=== PATIENT | female | born 1955 | race Two or more races ===

== ENCOUNTER 2016-05-11 10:57 | Emergency (ER) | payer OTHER ==
[2016-05-11 12:19] LABS: BASO # 0.1 x10^3/uL (0.0-0.2); BASO % 1 % (0-3); EOS % 3 % (0-3); HEMATOCRIT 45.8 % (36.0-47.0); LYMPH # 2.2 x10^3/uL (1.0-4.8); LYMPH % 23 % (24-48); MEAN CORPUSCULAR HEMOGLOBIN 31 pg (25-35); MEAN CORPUSCULAR HGB CONC 33 g/dL (31-37); MEAN CORPUSCULAR VOLUME 93 fL (79-100); MONO % 6 % (0-9); NEUT % 69 % (31-73); PLATELET COUNT 181 x10^3/uL (140-400); RED BLOOD COUNT 4.91 x10^6/uL (3.50-5.40); RED CELL DISTRIBUTION WIDTH 13.2 % (11.5-14.5)
--- NOTE | 2016-05-11 12:40 | RAD ---
Portable AP upright view CXR: Clinical indications: Chest pain today. Comparison: None available. Findings: Mild linear atelectasis of the left lateral lung base is seen. No lung consolidation or pleural effusion or pulmonary edema or lung mass or pneumothorax is seen. The heart size, pulmonary vasculature, mediastinum and both yasmin are unremarkable. Impression: Left lung base linear atelectasis..
[2016-05-11] MEDS ORDERED: IV NORMAL SALINE 1000ML BAG 1,000 ML IV ONE (12:45)
[2016-05-11] MEDS ORDERED: KETOROLAC TROMETHAMINE 30 MG/ML SYRINGE. IV ONE (12:45)
[2016-05-11] MEDS ORDERED: ONDANSETRON PF 4 MG/2 ML VIAL. IV ONE (12:45)
--- NOTE | 2016-05-11 13:00 | EKG ---
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
--- NOTE | 2016-05-11 13:28 | PHYS DOC ---
Past Medical History Past Medical History: Cancer, Other Additional Past Medical Histor: KIDNEY CANCER Past Surgical History: Cancer Surgery Alcohol Use: None Drug Use: None Adult General Chief Complaint Chief Complaint: CHEST PAIN HPI HPI This is a 60-year-old female prior CVA history but no other known medical problems who is coming in with IV days worth of back pain that does radiate into her chest and shoulders as well as significant cough and nausea and vomiting as well. Patient states she's had these symptoms several times after having a nephrectomy approximately 4 months ago. She's been evaluated in the ER multiple times for these symptoms and has had cardiac workup that has been negative. Per currently the patient is in no acute distress. History is obtained primarily by at bedside. Review of Systems Review of Systems Constitutional: Denies fever or chills [] Eyes: Denies change in visual acuity, redness, or eye pain [] HENT: Denies nasal congestion or sore throat [] Respiratory: Has cough, denies shortness of breath [] Cardiovascular: No additional information not addressed in HPI [] GI: Denies abdominal pain, has nausea, has vomiting, denies bloody stools or diarrhea [] : Denies dysuria or hematuria [] Musculoskeletal: Denies back pain or joint pain [] Integument: Denies rash or skin lesions [] Neurologic: Denies headache, focal weakness or sensory changes [] Endocrine: Denies polyuria or polydipsia [] Current Medications Current Medications Current Medications Medications (Trade) Dose Ordered Sig/Warren Start Time Stop Time Status Last Admin Dose Admin Ketorolac Tromethamine 30 mg 30 mg 1X ONCE 05/11/16 12:45 05/11/16 12:46 DC 05/11/16 12:49 30 MG Ondansetron HCl (Zofran) 4 mg 1X ONCE 05/11/16 12:45 05/11/16 12:46 DC 05/11/16 12:50 4 MG Sodium Chloride (Iv Sodium Chloride 0.9% 1000ml Bag) 1,000 ml @ 1,000 mls/hr 1X ONCE 05/11/16 12:45 05/11/16 13:44 DC 05/11/16 12:49 1,000 MLS/HR Allergies Allergies Allergies Coded Allergies Type Severity Reaction Last Updated Verified levothyroxine sodium Allergy Unknown 05/11/16 Yes Physical Exam Physical Exam Constitutional: Well developed, well nourished, no acute distress, non-toxic appearance. [] HENT: Normocephalic, atraumatic, bilateral external ears normal, oropharynx moist, no oral exudates, nose normal. [] Eyes: PERRLA, EOMI, conjunctiva normal, no discharge. [] Neck: Normal range of motion, no tenderness, supple, no stridor. [] Cardiovascular:Heart rate regular rhythm, no murmur [] Lungs & Thorax: Bilateral breath sounds clear to auscultation [] Abdomen: Bowel sounds normal, soft, no tenderness, no masses, no pulsatile masses. [] Skin: Warm, dry, no erythema, no rash. [] Back: No tenderness, no CVA tenderness. [] Extremities: No tenderness, no cyanosis, no clubbing, ROM intact, no edema. [] Neurologic: Alert and oriented X 3, normal motor function, normal sensory function, no focal deficits noted. [] Psychologic: Affect normal, judgement normal, mood normal. [] Current Patient Data Vital Signs Vital Signs Date Time Temp Pulse Resp B/P Pulse Ox O2 Delivery O2 Flow Rate FiO2 05/11/16 14:10 72 143/65 Room Air 05/11/16 11:09 98.1 14 97 98.1 Lab Values Laboratory Tests Test 05/11/16 12:10 05/11/16 13:10 White Blood Count 10.0x10^3/uL (4.0-11.0) Red Blood Count 4.91x10^6/uL (3.50-5.40) Hemoglobin 15.0g/dL (12.0-15.5) Hematocrit 45.8% (36.0-47.0) Mean Corpuscular Volume 93fL (79-100) Mean Corpuscular Hemoglobin 31pg (25-35) Mean Corpuscular Hemoglobin Concent 33g/dL (31-37) Red Cell Distribution Width 13.2% (11.5-14.5) Platelet Count 181x10^3/uL (140-400) Neutrophils (%) (Auto) 69% (31-73) Lymphocytes (%) (Auto) 23% (24-48) L Monocytes (%) (Auto) 6% (0-9) Eosinophils (%) (Auto) 3% (0-3) Basophils (%) (Auto) 1% (0-3) Neutrophils # (Auto) 6.8x10^3uL (1.8-7.7) Lymphocytes # (Auto) 2.2x10^3/uL (1.0-4.8) Monocytes # (Auto) 0.6x10^3/uL (0.0-1.1) Eosinophils # (Auto) 0.3x10^3/uL (0.0-0.7) Basophils # (Auto) 0.1x10^3/uL (0.0-0.2) Sodium Level 141mmol/L (136-145) Potassium Level 4.1mmol/L (3.5-5.1) Chloride Level 105mmol/L (98-107) Carbon Dioxide Level 26mmol/L (21-32) Anion Gap 10 (6-14) Blood Urea Nitrogen 21mg/dL (7-20) H Creatinine 0.7mg/dL (0.6-1.0) Estimated GFR (Cockcroft-Gault) 85.4 Glucose Level 126mg/dL (70-99) H Calcium Level 9.2mg/dL (8.5-10.1) Troponin I Quantitative < 0.017ng/mL (0.000-0.055) Laboratory Tests 05/11/16 12:10 Laboratory Tests 05/11/16 13:10 EKG EKG EKG as interpreted by me shows a sinus rhythm with a rate of 70 bpm. There are no acute signs of ischemia on this EKG. Intervals are normal. There is no ectopy. Radiology/Procedures Radiology/Procedures One view of the chest demonstrated some left lower lobe atelectasis as interpreted by the radiologist. Course & Med Decision Making Course & Med Decision Making Pertinent Labs and Imaging studies reviewed. (See chart for details) This 60 old female with ongoing cough with nausea and vomiting the last several days has a chest film that is suspicious for pneumonia with a left lower lobe atelectasis or infiltrate. I will be discharging the patient with a course of Tessalon Perles, doxycycline for suspected pneumonia, and Zofran for her nausea vomiting. I do not believe her chest pain is cardiac in etiology. Patient has had multiple cardiac workups in the past for similar type symptoms. Her symptoms have been present for the last 5 days and are likely more related to her ongoing nausea vomiting and cough. I gave her strict instruction to receive follow-up next 48 hours and allowed antibiotics to improve her symptoms. She was discharged without incident with strict instruction return if her chest pain should worsen for any reason. Her laboratory workup including a set of cardiac enzymes is otherwise unremarkable. Dragon Disclaimer Dragon Disclaimer This electronic medical record was generated, in whole or in part, using a voice recognition dictation system. Departure Departure Impression: Primary Impression: Cough Additional Impressions: Vomiting Chest pain Disposition: HOME, SELF-CARE Admitting Physician: Other Condition: STABLE Referrals: BOB RIDER MD (PCP) Patient Instructions: Cough, Adult, [id number] Additional Instructions: Please follow up with your primary doctor in the next 2-3 days and take your medication as prescribed. Return to the ER if you develop any worsening of your symptoms. Scripts Benzonatate (Tessalon Perle)100 Mg [id number] Mg PO TID PRN COUGH #15 CAP Prov:MARCELLA KNIGHT DO 05/11/16 Ondansetron Hcl (Zofran)4 Mg Tablet4 Mg PO BID PRN NAUSEA/VOMITING #10 TAB Prov:MARCELLA KNIGHT DO 05/11/16 Doxycycline Hyclate 100 Mg Tablet.dr100 Mg PO BID #20 TAB Prov:MARCELLA KNIGHT DO 05/11/16 Problem Qualifiers MARCELLA KNIGHT DO May 11, 2016 13:28
[2016-05-11 13:29] LABS: CALCIUM 9.2 mg/dL (8.5-10.1); CREATININE 0.7 mg/dL (0.6-1.0); GFR 85.4; POTASSIUM 4.1 mmol/L (3.5-5.1)
[2016-05-11 14:10] VITALS: BP 143/65
[2016-05-11] MEDS ORDERED: BENZ100C PO (14:42)
[2016-05-11] MEDS ORDERED: DOXY100T9 PO (14:42)
[2016-05-11] MEDS ORDERED: ONDA4TAB7 PO (14:42)
== END 2016-05-11 15:01 | disposition home or self-care (01) ==
LOC: ER 10:57
DX: R05 Cough (principal); R11.2 Nausea with vomiting, unspecified; R07.89 Other chest pain; Z88.8 Allergy status to other drugs, medicaments and biological substances; Z90.5 Acquired absence of kidney
CPT/HCPCS: 36415; 71010; 80048; 84484; 85027; 93005; 96361; 96374; 96375; 99285; J1885; J2405; J7030

== ENCOUNTER 2016-05-22 07:41 | Inpatient (IN) | payer SELFPAY ==
[~2016-05-22] VITALS: Ht 160 cm; Wt 57.6 kg
[~2016-05-22 07:41] MED LIST: BENZ100C PO; DOXY100T9 PO; ONDA4TAB7 PO
[2016-05-22] MEDS ORDERED: IV NORMAL SALINE 1000ML BAG 1,000 ML IV SCH (08:52)
[2016-05-22] MEDS ORDERED: ONDANSETRON PF 4 MG/2 ML VIAL. IV ONE (09:00)
[2016-05-22] MEDS ORDERED: MECLIZINE HCL 12.5 MG TABLET. PO ONE (09:00)
--- NOTE | 2016-05-22 09:18 | RAD ---
Portable chest, 05/22/2016: History: Cough Comparison is made to a study from 05/11/2016. The heart size and pulmonary vascularity are normal. The lungs are clear. There is no evidence of pleural fluid. Mild spurring is present in the spine. IMPRESSION: No acute cardiopulmonary abnormality is detected.
--- NOTE | 2016-05-22 09:19 | PHYS DOC ---
Past Medical History Past Medical History: Cancer, Other Additional Past Medical Histor: KIDNEY CANCER Past Surgical History: Cancer Surgery, Other Additional Past Surgical Histo: right ?partial nephrectomy, "surgery to keep from having babies" Alcohol Use: None Drug Use: None Adult General Chief Complaint Chief Complaint: MULTIPLE COMPLAINTS HPI HPI Patient is a 60 year old female who presents with family for evaluation of intermittent nausea and vomiting of nonbloody nonbilious emesis, nonproductive cough, intermittent dizziness, intermittent headaches, and generalized weakness. States she has been having vomiting over the past 5 days. Dizziness is intermittent and happens upon standing. She denies resting dizziness. States she has been having these symptoms over the past few months since partial nephrectomy. The symptoms come and go. When the symptoms come, she comes in the emergency department. She has not seen her primary care doctors at the [facility] for follow-up after her emergency department visits. She denies vision changes, neck pain or manipulation, numbness, tingling, weakness. Denies current headache. Denies chest pain, dyspnea, abdominal pain, diarrhea, dysuria. She was seen in the emergency department on 05/11/16 and treated for possible pneumonia. She had a period of improvement of her symptoms prior to them returning when she ran out of antibiotics. Review of Systems Review of Systems Constitutional: Denies fever or chills [] Eyes: Denies change in visual acuity, redness, or eye pain [] HENT: Denies nasal congestion or sore throat [] Respiratory: Denies shortness of breath [] Cardiovascular: No additional information not addressed in HPI [] GI: Denies abdominal pain, bloody stools or diarrhea [] : Denies dysuria or hematuria [] Musculoskeletal: Denies back pain or joint pain [] Integument: Denies rash or skin lesions [] Neurologic: Denies focal weakness or sensory changes [] Endocrine: Denies polyuria or polydipsia [] Current Medications Current Medications Current Medications Medications (Trade) Dose Ordered Sig/Warren Start Time Stop Time Status Last Admin Dose Admin Meclizine HCl (Antivert) 25 mg 1X ONCE 05/22/16 09:00 05/22/16 09:04 DC 05/22/16 09:17 25 MG Ondansetron HCl (Zofran) 4 mg 1X ONCE 05/22/16 09:00 05/22/16 09:04 DC 05/22/16 09:15 4 MG Sodium Chloride (Iv Sodium Chloride 0.9% 1000ml Bag) 1,000 ml @ 1,000 mls/hr Q1H 05/22/16 08:52 05/22/16 09:51 DC 05/22/16 09:13 1,000 MLS/HR Allergies Allergies Physical Exam Physical Exam Constitutional: Well developed, well nourished, no acute distress, non-toxic appearance. [] HENT: Normocephalic, atraumatic, bilateral external ears normal, oropharynx moist, no oral exudates, nose normal. [] Eyes: PERRLA, EOMI. [] Neck: Normal range of motion, no tenderness, supple. [] Cardiovascular:Heart rate regular rhythm [] Lungs & Thorax: Bilateral breath sounds clear to auscultation [] Abdomen: Bowel sounds normal, soft, no tenderness. [] Skin: Warm, dry, no erythema, no rash. [] Back: No tenderness, no CVA tenderness. [] Extremities: No tenderness, ROM intact, no edema. [] Neurologic: Alert and oriented X 3, normal motor function, normal sensory function, no focal deficits noted, cranial nerves II through XII intact, no pronator drift, no nystagmus, ambulatory with a steady gait. [] Psychologic: Affect normal, judgement normal, mood normal. [] Current Patient Data Vital Signs Vital Signs Date Time Temp Pulse Resp B/P Pulse Ox O2 Delivery O2 Flow Rate FiO2 05/22/16 10:18 89 18 135/63 99 Room Air 05/22/16 08:30 98.5 98.5 Lab Values Laboratory Tests Test 05/22/16 09:05 05/22/16 10:30 White Blood Count 14.6x10^3/uL (4.0-11.0) H Red Blood Count 4.37x10^6/uL (3.50-5.40) Hemoglobin 13.4g/dL (12.0-15.5) Hematocrit 40.1% (36.0-47.0) Mean Corpuscular Volume 92fL (79-100) Mean Corpuscular Hemoglobin 31pg (25-35) Mean Corpuscular Hemoglobin Concent 33g/dL (31-37) Red Cell Distribution Width 13.0% (11.5-14.5) Platelet Count 163x10^3/uL (140-400) Neutrophils (%) (Auto) 87% (31-73) H Lymphocytes (%) (Auto) 8% (24-48) L Monocytes (%) (Auto) 5% (0-9) Eosinophils (%) (Auto) 0% (0-3) Basophils (%) (Auto) 0% (0-3) Neutrophils # (Auto) 12.7x10^3uL (1.8-7.7) H Lymphocytes # (Auto) 1.2x10^3/uL (1.0-4.8) Monocytes # (Auto) 0.7x10^3/uL (0.0-1.1) Eosinophils # (Auto) 0.0x10^3/uL (0.0-0.7) Basophils # (Auto) 0.1x10^3/uL (0.0-0.2) Platelet Estimate Pending Sodium Level 142mmol/L (136-145) Potassium Level 3.6mmol/L (3.5-5.1) Chloride Level 104mmol/L (98-107) Carbon Dioxide Level 26mmol/L (21-32) Anion Gap 12 (6-14) Blood Urea Nitrogen 17mg/dL (7-20) Creatinine 0.7mg/dL (0.6-1.0) Estimated GFR (Cockcroft-Gault) 85.4 Glucose Level 161mg/dL (70-99) H Calcium Level 9.6mg/dL (8.5-10.1) Total Bilirubin 0.4mg/dL (0.2-1.0) Direct Bilirubin 0.1mg/dL (0.0-0.2) Aspartate Amino Transferase (AST) 20U/L (15-37) Alanine Aminotransferase (ALT) 26U/L (14-59) Alkaline Phosphatase 71U/L (46-116) Troponin I Quantitative < 0.017ng/mL (0.000-0.055) UW-Iel-A-Type Natriuretic Peptide 37pg/mL (0-124) Total Protein 7.2g/dL (6.4-8.2) Albumin 3.9g/dL (3.4-5.0) Lipase 213U/L (73-393) Urine Collection Type Unknown Urine Color Yellow Urine Clarity Cloudy Urine pH 8.0 Urine Specific [place] 1.020 Urine Protein Negativemg/dL (NEG-TRACE) Urine Glucose (UA) Negativemg/dL (NEG) Urine Ketones (Stick) 15mg/dL (NEG) Urine Blood Negative (NEG) Urine Nitrite Negative (NEG) Urine Bilirubin Negative (NEG) Urine Urobilinogen Dipstick 0.2mg/dL (0.2 mg/dL) Urine Leukocyte Esterase Negative (NEG) Urine RBC 0/HPF (0-2) Urine WBC 0/HPF (0-4) Urine Squamous Epithelial Cells Few/LPF Urine Amorphous Sediment Present/HPF Urine Bacteria 0/HPF (0-FEW) Laboratory Tests 05/22/16 09:05 Laboratory Tests 05/22/16 09:05 EKG EKG EKG as interpreted by me as normal sinus rhythm, rate 64, no ST-T changes, normal intervals, no ectopy Radiology/Procedures Radiology/Procedures Chest xray as interpreted by me with no acute cardiopulmonary disease process, improved from prior Head CT without contrast IMPRESSION: 1. No acute intracranial abnormality. 2. Partial opacification of the left mastoid sinus. DICTATED and SIGNED BY: ELVIA LINDSEY MD DATE: 05/22/1649 Course & Med Decision Making Course & Med Decision Making Pertinent Labs and Imaging studies reviewed. (See chart for details) Laboratory evaluation is unremarkable. Chest x-ray is improved from prior. Head CT shows signs of left mastoid inflammation that could be possible etiology of vertigo symptoms; so ordered Augmentin. This however does not explain 3 years of intermittent symptoms. She was feeling better after medications, but after ambulating to the restroom she became very dizzy and vomited again. Will admit for further treatment of dizziness and vomiting. Discussed case with Dr. Pascal , who will admit. Dragon Disclaimer Dragon Disclaimer This electronic medical record was generated, in whole or in part, using a voice recognition dictation system. Departure Departure Impression: Primary Impression: Vertigo Additional Impressions: Nausea and vomiting Mastoiditis of left side Disposition: ADMITTED INPATIENT Condition: STABLE Referrals: BOB RIDER MD (PCP) Problem Qualifiers Additional Impressions: Nausea and vomiting Vomiting type: unspecified Vomiting Intractability: intractable Qualified Code: R11.2 - Nausea with vomiting, unspecified Isaiah LARIOS MD May 22, 2016 09:19
[2016-05-22 09:21] LABS: CALCIUM 9.6 mg/dL (8.5-10.1); CREATININE 0.7 mg/dL (0.6-1.0); GFR 85.4; POTASSIUM 3.6 mmol/L (3.5-5.1)
[2016-05-22 09:26] LABS: BASO # 0.1 x10^3/uL (0.0-0.2); BASO % 0 % (0-3); EOS % 0 % (0-3); HEMATOCRIT 40.1 % (36.0-47.0); HEMOGLOBIN 13.4 g/dL (12.0-15.5); LYMPH # 1.2 x10^3/uL (1.0-4.8); LYMPH % 8 % (24-48); MEAN CORPUSCULAR HEMOGLOBIN 31 pg (25-35); MEAN CORPUSCULAR HGB CONC 33 g/dL (31-37); MEAN CORPUSCULAR VOLUME 92 fL (79-100); MONO % 5 % (0-9); NEUT % 87 % (31-73); PLATELET COUNT 163 x10^3/uL (140-400); RED BLOOD COUNT 4.37 x10^6/uL (3.50-5.40); WHITE BLOOD COUNT 14.6 x10^3/uL (4.0-11.0)
[2016-05-22 09:29] LABS: ALBUMIN 3.9 g/dL (3.4-5.0); DIRECT BILIRUBIN 0.1 mg/dL (0.0-0.2); TOTAL BILIRUBIN 0.4 mg/dL (0.2-1.0); TOTAL PROTEIN 7.2 g/dL (6.4-8.2)
--- NOTE | 2016-05-22 09:43 | EKG ---
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
--- NOTE | 2016-05-22 09:53 | RAD ---
CT of the head without contrast, 05/22/2016: History: Dizziness, nausea and vomiting The ventricles are within normal limits in size. There is no shift of the midline structures. There is no evidence of acute intracranial hemorrhage or mass effect. The left mastoid air cells are partially opacified, presumably on an inflammatory basis. IMPRESSION: 1. No acute intracranial abnormality. 2. Partial opacification of the left mastoid sinus. PQRS Compliance Statement: One or more of the following individualized dose reduction techniques were utilized for this examination: 1. Automated exposure control 2. Adjustment of the mA and/or kV according to patient size 3. Use of iterative reconstruction technique
[2016-05-22 10:53] LABS: BILIRUBIN,URINE NEGATIVE (NEG); GLUCOSE,URINE NEGATIVE (NEG); NITRITE,URINE NEGATIVE (NEG); PROTEIN,URINE NEGATIVE (NEG-TRACE); UROBILINOGEN,URINE 0.2 mg/dL (0.2 mg/dL)
[2016-05-22 11:02] LABS: BACTERIA,URINE 0 /HPF (0-FEW); RBC,URINE 0 /HPF (0-2); SQUAMOUS EPITHELIAL CELL,UR FEW /LPF; WBC,URINE 0 /HPF (0-4)
[2016-05-22] MEDS ORDERED: ACETAMINOPHEN 325 MG TABLET. PO PRN (11:45)
[2016-05-22] MEDS ORDERED: ONDANSETRON PF 4 MG/2 ML VIAL. IV PRN ×2 (11:45→12:56)
[2016-05-22] MEDS ORDERED: ACETAMINOPHEN 500 MG TABLET PO PRN (13:00)
--- NOTE | 2016-05-22 13:09 | PDOC1 ---
History and Physical Date of Admission Date of Admission DATE: 05/22/16 TIME: 13:04 Identification/Chief Complaint Chief Complaint dizziness Source Source: Caregiver, Chart review, Patient History of Present Illness History of Present Illness 60 y.o female who visits the ER second time now bec of dizziness. SPeaks ukrainian only, labs show WBC 14, BMp ok, CXR ok, CT head shows some opacification of the mastod sinus, Pt does claim runny nose, and most remarkably dizziness she demonstrates as room spinning, She has had multiple emesis at ER and still vertiginous hence admitted., Does not take any regular emds at home, only past medical is limited (low stage ) RCC s/p radical or partial nephrectomy some yrs ago,. Non smoker, non drinker Past Medical History Cardiovascular: No pertinent hx Pulmonary: No pertinent hx GI: No pertinent hx Heme/Onc: Other (Low stage RCC) Hepatobiliary: No pertinent hx Psych: No pertinent hx Rheumatologic: No pertinent hx Infectious disease: No pertinent hx ENT: No pertinent hx Renal/: No pertinent hx Endocrine: No pertinent hx Dermatology: No pertinent hx Past Surgical History Past Surgical History: Other (partial vs radical nephrectomy) Family History Family History: No Significant Social History Smoke: No ALCOHOL: none Drugs: None Current Problem List Problem List Problems Medical Problems: (1) Mastoiditis of left side Status: Acute (2) Nausea and vomiting Status: Acute (3) Vertigo Status: Acute Problems: Current Medications Current Medications Current Medications Sodium Chloride (Iv Sodium Chloride 0.9% 1000ml Bag) 1,000 ml @ 1,000 mls/hr Q1H IV Last administered on 05/22/16 09:13; Start 05/22/16 at 08:52; Stop at 09:51; Status DC Ondansetron HCl (Zofran) 4 mg 1X ONCE IV Last administered on 05/22/16 09:15 ; Start 05/22/16 at 09:00; Stop 05/22/16 at 09:04; Status DC Meclizine HCl (Antivert) 25 mg 1X ONCE PO Last administered on 05/22/16 09:17 ; Start 05/22/16 at 09:00; Stop 05/22/16 at 09:04; Status DC Amoxicillin/ Clavulanate Potassium (Augmentin 875/ 125mg) 1 tab BID PO ; Start 05/22/16 at 12:00 Ondansetron HCl (Zofran) 4 mg PRN Q8HRS PRN IV NAUSEA/VOMITING; Start 05/22/16 at 11:45; Stop 05/22/16 at 13:00; Status DC Acetaminophen (Tylenol) 650 mg PRN Q4HRS PRN PO FEVER; Start 05/22/16 at 11:45 ; Stop 05/23/16 at 11:44 Ondansetron HCl (Zofran) 4 mg PRN Q6HRS PRN IV NAUSEA/VOMITING; Start 05/22/16 at 12:56; Status UNV Acetaminophen (Tylenol) 500 mg PRN Q6HRS PRN PO MILD PAIN / TEMP; Start at 13:00; Status UNV Meclizine HCl (Antivert) 25 mg PRN Q6HRS PRN PO DIZZINESS; Start 05/22/16 at 13 :00; Status UNV Cetirizine HCl (Zyrtec) 10 mg DAILY PO ; Start 05/22/16 at 13:00; Status UNV Fluticasone Propionate (Flonase) 2 spray DAILY NS ; Start 05/23/16 at 09:00; Status UNV Active Scripts Active Tessalon Perle (Benzonatate) 100 Mg Capsule 100 Mg PO TID PRN Zofran (Ondansetron Hcl) 4 Mg Tablet 4 Mg PO BID PRN Doxycycline Hyclate 100 Mg Tablet.dr 100 Mg PO BID Allergies Allergies: Coded Allergies: levofloxacin (Verified Allergy, Intermediate, "rash on my hands", 05/22/16) ROS Review of System vertigo, emesis, nausea the rest is negative Physical Exam General: mild distress, Other (prefers to close her eyes and appears tired, weak but in no distress) HEENT: Atraumatic Lungs: Clear to auscultation Heart: S1S2, RRR, no thrills, no rubs Cardiovascular: S1, S2 Breasts: Normal Abdomen: Normal bowel sounds, Soft, No tenderness, No hepatosplenomegaly, No masses Rectal Exam: not examined PELVIC: Nml ext genitalia Extremities: No clubbing, No cyanosis, No edema, Normal pulses, No tenderness/ swelling Skin: No rashes, No breakdown, No significant lesion Neuro: Normal gait, Normal speech, Strength at 5/5 X4 ext, Normal tone, Sensation intact, Cranial nerves 3-12 NL, Reflexes 2+ Psych/Mental Status: Mental status NL, Mood NL Vitals Vitals Vital Signs Date Time Temp Pulse Resp B/P Pulse Ox O2 Delivery O2 Flow Rate FiO2 05/22/16 11:08 73 14 104/62 94 Room Air 05/22/16 08:30 98.5 98.5 Labs Labs Laboratory Tests Test 05/22/16 09:05 05/22/16 10:30 White Blood Count 14.6x10^3/uL (4.0-11.0) Red Blood Count 4.37x10^6/uL (3.50-5.40) Hemoglobin 13.4g/dL (12.0-15.5) Hematocrit 40.1% (36.0-47.0) Mean Corpuscular Volume 92fL (79-100) Mean Corpuscular Hemoglobin 31pg (25-35) Mean Corpuscular Hemoglobin Concent 33g/dL (31-37) Red Cell Distribution Width 13.0% (11.5-14.5) Platelet Count 163x10^3/uL (140-400) Neutrophils (%) (Auto) 87% (31-73) Lymphocytes (%) (Auto) 8% (24-48) Monocytes (%) (Auto) 5% (0-9) Eosinophils (%) (Auto) 0% (0-3) Basophils (%) (Auto) 0% (0-3) Neutrophils # (Auto) 12.7x10^3uL (1.8-7.7) Lymphocytes # (Auto) 1.2x10^3/uL (1.0-4.8) Monocytes # (Auto) 0.7x10^3/uL (0.0-1.1) Eosinophils # (Auto) 0.0x10^3/uL (0.0-0.7) Basophils # (Auto) 0.1x10^3/uL (0.0-0.2) Sodium Level 142mmol/L (136-145) Potassium Level 3.6mmol/L (3.5-5.1) Chloride Level 104mmol/L (98-107) Carbon Dioxide Level 26mmol/L (21-32) Anion Gap 12 (6-14) Blood Urea Nitrogen 17mg/dL (7-20) Creatinine 0.7mg/dL (0.6-1.0) Estimated GFR (Cockcroft-Gault) 85.4 Glucose Level 161mg/dL (70-99) Calcium Level 9.6mg/dL (8.5-10.1) Total Bilirubin 0.4mg/dL (0.2-1.0) Direct Bilirubin 0.1mg/dL (0.0-0.2) Aspartate Amino Transf (AST/SGOT) 20U/L (15-37) Alanine Aminotransferase (ALT/SGPT) 26U/L (14-59) Alkaline Phosphatase 71U/L (46-116) Troponin I Quantitative < 0.017ng/mL (0.000-0.055) AL-Ubq-W-Type Natriuretic Peptide 37pg/mL (0-124) Total Protein 7.2g/dL (6.4-8.2) Albumin 3.9g/dL (3.4-5.0) Lipase 213U/L (73-393) Urine Collection Type Unknown Urine Color Yellow Urine Clarity Cloudy Urine pH 8.0 Urine Specific [place] 1.020 Urine Protein Negativemg/dL (NEG-TRACE) Urine Glucose (UA) Negativemg/dL (NEG) Urine Ketones (Stick) 15mg/dL (NEG) Urine Blood Negative (NEG) Urine Nitrite Negative (NEG) Urine Bilirubin Negative (NEG) Urine Urobilinogen Dipstick 0.2mg/dL (0.2 mg/dL) Urine Leukocyte Esterase Negative (NEG) Urine RBC 0/HPF (0-2) Urine WBC 0/HPF (0-4) Urine Squamous Epithelial Cells Few/LPF Urine Amorphous Sediment Present/HPF Urine Bacteria 0/HPF (0-FEW) Laboratory Tests Test 05/22/16 09:05 05/22/16 10:30 White Blood Count 14.6x10^3/uL (4.0-11.0) Red Blood Count 4.37x10^6/uL (3.50-5.40) Hemoglobin 13.4g/dL (12.0-15.5) Hematocrit 40.1% (36.0-47.0) Mean Corpuscular Volume 92fL (79-100) Mean Corpuscular Hemoglobin 31pg (25-35) Mean Corpuscular Hemoglobin Concent 33g/dL (31-37) Red Cell Distribution Width 13.0% (11.5-14.5) Platelet Count 163x10^3/uL (140-400) Neutrophils (%) (Auto) 87% (31-73) Lymphocytes (%) (Auto) 8% (24-48) Monocytes (%) (Auto) 5% (0-9) Eosinophils (%) (Auto) 0% (0-3) Basophils (%) (Auto) 0% (0-3) Neutrophils # (Auto) 12.7x10^3uL (1.8-7.7) Lymphocytes # (Auto) 1.2x10^3/uL (1.0-4.8) Monocytes # (Auto) 0.7x10^3/uL (0.0-1.1) Eosinophils # (Auto) 0.0x10^3/uL (0.0-0.7) Basophils # (Auto) 0.1x10^3/uL (0.0-0.2) Sodium Level 142mmol/L (136-145) Potassium Level 3.6mmol/L (3.5-5.1) Chloride Level 104mmol/L (98-107) Carbon Dioxide Level 26mmol/L (21-32) Anion Gap 12 (6-14) Blood Urea Nitrogen 17mg/dL (7-20) Creatinine 0.7mg/dL (0.6-1.0) Estimated GFR (Cockcroft-Gault) 85.4 Glucose Level 161mg/dL (70-99) Calcium Level 9.6mg/dL (8.5-10.1) Total Bilirubin 0.4mg/dL (0.2-1.0) Direct Bilirubin 0.1mg/dL (0.0-0.2) Aspartate Amino Transf (AST/SGOT) 20U/L (15-37) Alanine Aminotransferase (ALT/SGPT) 26U/L (14-59) Alkaline Phosphatase 71U/L (46-116) Troponin I Quantitative < 0.017ng/mL (0.000-0.055) WA-Lzk-I-Type Natriuretic Peptide 37pg/mL (0-124) Total Protein 7.2g/dL (6.4-8.2) Albumin 3.9g/dL (3.4-5.0) Lipase 213U/L (73-393) Urine Collection Type Unknown Urine Color Yellow Urine Clarity Cloudy Urine pH 8.0 Urine Specific [place] 1.020 Urine Protein Negativemg/dL (NEG-TRACE) Urine Glucose (UA) Negativemg/dL (NEG) Urine Ketones (Stick) 15mg/dL (NEG) Urine Blood Negative (NEG) Urine Nitrite Negative (NEG) Urine Bilirubin Negative (NEG) Urine Urobilinogen Dipstick 0.2mg/dL (0.2 mg/dL) Urine Leukocyte Esterase Negative (NEG) Urine RBC 0/HPF (0-2) Urine WBC 0/HPF (0-4) Urine Squamous Epithelial Cells Few/LPF Urine Amorphous Sediment Present/HPF Urine Bacteria 0/HPF (0-FEW) VTE Prophylaxis Ordered VTE Prophylaxis Devices: Yes VTE Pharmacological Prophylaxi: Yes Assessment/Plan Assessment/Plan 1. Vertigo, difftls BPPV 2. Emesis sec to above 3. Acute mastoiditis/sinusitis 3. Hx limited RCC s/p nephrectomy 4. Reactive leukocytosis, SIRS maybe no sepsis or organ dysfcn PLAn: Strat PO augmentin Start H2 eloy NAsal spray Pt/OT do candido hallpike and if positive nikki maneuver and meclizine Education and counselling done OBS NOEMI PEREZ MD May 22, 2016 13:09
[2016-05-22 13:39] LABS: PLT ESTIMATE ADEQUATE (ADEQUATE)
[2016-05-22] MEDS: AMOXICILLIN/K CLAV 875/125MG TABLET. PO SCH ×2 (14:53→20:51)
[2016-05-22] MEDS: CETIRIZINE HCL 10 MG TABLET PO SCH (14:53)
[2016-05-22 15:32] VITALS: BP 106/70
[2016-05-22] MEDS: FLUTICASONE 50MCG/NASAL SPRAY 16GM BOTTLE. NS SCH (17:30)
[2016-05-22 19:00] VITALS: BP 122/67
[2016-05-22] MEDS: MECLIZINE HCL 12.5 MG TABLET. PO PRN (20:52)
--- NOTE | 2016-05-22 21:26 | ACF ---
Admission Forms Criteria VERTIGO Clinical Indications for Admission to Inpatient Care (Place 'X' for any and all applicable criteria): Admission is indicated for ANY ONE of the following(1)(2)(3)(4): [ ]I. Acute bacterial labyrinthitis [ ]II. A suspected etiology that requires admission for treatment [X]III. Inpatient admission required rather than observation care (Also use Vertigo: Observation Care as appropriate) because of ANY ONE of the following: [ ]a) Hemodynamic instability that is severe or persistent [X]b) Signs or symptoms that are severe or persistent (eg, vomiting , orthostasis, inability to ambulate) [ ]c) Cardiac arrhythmias of immediate concern [ ]d) Severe (new) neurologic findings requiring inpatient care as indicated by ANY ONE of the following(6)(7) [ ]1) Cerebral bleeding, ischemia, or vasospasm(8)(9) [ ]2) Increased intracranial pressure or hydrocephalus(10) (11)(12) [ ]3) Papilledema [ ]4) Cerebral edema [ ]5) Mass effect on CT scan [ ]e) Vomiting that is severe or persistent [ ]f) Continuous IV infusion of anticoagulation, platelet inhibitor, vasoactive, or antiarrhythmic medication [ ]g) Cerebral bleeding, hydrocephalus, or vasospasm monitoring(14) [ ]h) Increased intracranial pressure or cerebral edema monitoring [ ]i) Other condition, treatment or monitoring requiring inpatient admission [ ]IV. Cerebellar, brainstem, or cerebral ischemia or hemorrhage(5) Extended stay beyond goal length of stay may be needed for evaluating and treating a specific cause of dizziness, including(26): [ ]a) Head injury (27) ( Also use Traumatic Brain Injury, Nonsurgical Treatment guideline) [ ]b) New-onset vertebrobasilar vascular insufficiency(23) [ ]c) Acute Meniere disease with intractable symptoms [ ]d) Cardiac arrhythmias or conduction defects [ ]e) Acute neurologic event causing dizziness [ ]f) Myocardial ischemia [ ]g) Acute bacterial labyrinthitis(1) [ ]h) Severe acute vestibular neuronitis(18) The original [employer] content created by Nichole Patel has been revised. The portions of the content which have been revised are identified through the use of italic text or in bold, and Nichole Patel has neither reviewed nor approved the modified material. All other unmodified content is copyright [facility]. Please see references footnoted in the original [facility] edition 2016 Admission Criteria Met?: Yes ELISHA BHAKTA May 22, 2016 21:26
[2016-05-22 23:00] VITALS: BP 122/66
[2016-05-23 03:00] VITALS: BP 95/56
[2016-05-23 07:55] VITALS: BP 106/65
[2016-05-23] MEDS: CETIRIZINE HCL 10 MG TABLET PO SCH (08:30)
[2016-05-23] MEDS: AMOXICILLIN/K CLAV 875/125MG TABLET. PO SCH ×2 (08:31→17:04)
[2016-05-23] MEDS: MECLIZINE HCL 12.5 MG TABLET. PO PRN ×2 (08:31→14:40)
[2016-05-23] MEDS: FLUTICASONE 50MCG/NASAL SPRAY 16GM BOTTLE. NS SCH (08:48)
[2016-05-23 11:46] VITALS: BP 108/68
[2016-05-23] MEDS ORDERED: PROMETHAZINE 12.5 MG TABLET. PO PRN (13:30)
[2016-05-23] MEDS ORDERED: POTASSIUM CHLORIDE 20 MEQ TABLET.ER. PO ONE (13:30)
[2016-05-23] MEDS ORDERED: AMOX1TAB11 PO (13:44)
[2016-05-23] MEDS ORDERED: PROM12.56 PO (13:44)
[2016-05-23] MEDS ORDERED: MECL12.52 PO (13:44)
[2016-05-23 15:48] VITALS: BP 105/65
== END 2016-05-23 17:20 | disposition home or self-care (01) | DRG 153 ==
LOC: ER 07:41 → 5 NORTH 10:30
PROVIDERS: ADMIT Internal Medicine; ATTEND Internal Medicine
DX: H70.002 Acute mastoiditis without complications, left ear (principal); R65.10 Systemic inflammatory response syndrome (SIRS) of non-infectious origin without acute organ dysfunction; R42 Dizziness and giddiness; D72.828 Other elevated white blood cell count; R11.2 Nausea with vomiting, unspecified; Z90.5 Acquired absence of kidney; Z88.1 Allergy status to other antibiotic agents; Z79.899 Other long term (current) drug therapy; Z85.528 Personal history of other malignant neoplasm of kidney; Z79.1 Long term (current) use of non-steroidal anti-inflammatories (NSAID); J01.90 Acute sinusitis, unspecified
CPT/HCPCS: 36415; 70450; 71010; 80048; 80076; 81001; 83690; 83880; 84484; 85007; 85027; 93005; 96361; 96374; J2405; J7030; J8597; Q0169; 99285-25

== ENCOUNTER 2019-10-12 11:16 | Emergency (ER) | payer SELFPAY ==
[~2019-10-12] VITALS: Ht 160 cm; Wt 62.2 kg
[~2019-10-12 11:16] MED LIST changes: +AMOX1TAB11 PO; +DOXY-96 PO; -DOXY100T9 PO; +MECL12.573 PO; +PROM12.58 PO
[2019-10-12] MEDS ORDERED: DEXAMETHASONE 4 MG TABLET PO ONE (11:30)
[2019-10-12] MEDS ORDERED: IV NORMAL SALINE 1000ML BAG 1,000 ML IV ONE (11:45)
[2019-10-12] MEDS ORDERED: ASPIRIN 325 MG TABLET PO ONE (11:45)
--- NOTE | 2019-10-12 11:59 | RAD ---
EXAM: CHEST 1 VIEW History: Cough COMPARISON: 05/22/2016 TECHNIQUE: Single portable radiograph of the chest FINDINGS: The cardiac silhouette is unremarkable. The lungs are clear bilaterally. The costophrenic sulci are clear and well demarcated. IMPRESSION: No radiographic evidence of an acute cardiopulmonary process. Electronically signed by: Lew Farrell MD (10/12/2019 11:56 AM) [id number]
--- NOTE | 2019-10-12 12:08 | PHYS DOC ---
Past Medical History Past Medical History: Cancer, Pneumonia, Other Additional Past Medical Histor: KIDNEY CANCER Past Surgical History: Cancer Surgery, Other Additional Past Surgical Histo: right ?partial nephrectomy, "surgery to keep from having babies" Smoking Status: Never Smoker Alcohol Use: None Drug Use: None General Adult EDM: Chief Complaint: COUGH HPI: HPI: Patient is a 64 year old [f__sex] who presents with [] Review of Systems: Review of Systems: Constitutional: Denies fever or chills. [] Eyes: Denies change in visual acuity. [] HENT: Denies nasal congestion or sore throat. [] Respiratory: Denies cough or shortness of breath. [] Cardiovascular: Denies chest pain or edema. [] GI: Denies abdominal pain, nausea, vomiting, bloody stools or diarrhea. [] : Denies dysuria. [] Musculoskeletal: Denies back pain or joint pain. [] Integument: Denies rash. [] Neurologic: Denies headache, focal weakness or sensory changes. [] Endocrine: Denies polyuria or polydipsia. [] Lymphatic: Denies swollen glands. [] Psychiatric: Denies depression or anxiety. [] Heart Score: Risk Factors: Risk Factors: DM, Current or recent (<one month) smoker, HTN, HLP, family history of CAD, obesity. Risk Scores: Score 0 - 3: 2.5% MACE over next 6 weeks - Discharge Home Score 4 - 6: 20.3% MACE over next 6 weeks - Admit for Clinical Observation Score 7 - 10: 72.7% MACE over next 6 weeks - Early Invasive Strategies Current Medications: Current Medications Medications (Trade) Dose Ordered Sig/Warren Start Time Stop Time Status Last Admin Dose Admin Aspirin (Kiana Aspirin) 325 mg 1X ONCE 10/12/19 11:45 10/12/19 11:47 DC Dexamethasone (Decadron) 10 mg 1X ONCE 10/12/19 11:30 10/12/19 11:31 DC Sodium Chloride 1,000 ml @ 1,000 mls/hr 1X ONCE 10/12/19 11:45 10/12/19 12:44 Allergies: Allergies: Allergies Coded Allergies Type Severity Reaction Last Updated Verified levofloxacin Allergy Intermediate "rash on my hands" 05/22/16 Yes Physical Exam: PE: Constitutional: Well developed, well nourished, no acute distress, non-toxic appearance. [] HENT: Normocephalic, atraumatic, bilateral external ears normal, oropharynx moist, no oral exudates, nose normal. [] Eyes: PERRLA, EOMI, conjunctiva normal, no discharge. [] Neck: Normal range of motion, no tenderness, supple, no stridor. [] Cardiovascular:Heart rate regular rhythm, no murmur [] Lungs & Thorax: Bilateral breath sounds clear to auscultation [] Abdomen: Bowel sounds normal, soft, no tenderness, no masses, no pulsatile masses. [] Skin: Warm, dry, no erythema, no rash. [] Back: No tenderness, no CVA tenderness. [] Extremities: No tenderness, no cyanosis, no clubbing, ROM intact, no edema. [] Neurologic: Alert and oriented X 3, normal motor function, normal sensory function, no focal deficits noted. [] Psychologic: Affect normal, judgement normal, mood normal. [] Current Patient Data: Vital Signs: Vital Signs Date Time Temp Pulse Resp B/P (MAP) Pulse Ox O2 Delivery O2 Flow Rate FiO2 10/12/19 11:27 98.4 99 16 136/85 (102) 96 Room Air 98.4 EKG: EKG: @1149 NSR at 100bpm, NO ST elevation, QRS 76ms, QT/QTc 328/426ms Radiology/Procedures: Radiology/Procedures: PROCEDURE: CHEST AP ONLY EXAM: CHEST 1 VIEW History: Cough COMPARISON: 05/22/2016 TECHNIQUE: Single portable radiograph of the chest FINDINGS: The cardiac silhouette is unremarkable. The lungs are clear bilaterally. The costophrenic sulci are clear and well demarcated. IMPRESSION: No radiographic evidence of an acute cardiopulmonary process. Electronically signed by: Lew Farrell MD (10/12/2019 11:56 AM) [id number] Course & Med Decision Making: Course & Med Decision Making Pertinent Labs and Imaging studies reviewed. (See chart for details) [] Dragon Disclaimer: Dragon Disclaimer: This electronic medical record was generated, in whole or in part, using a voice recognition dictation system. Departure Departure Impression: Primary Impression: Suspected 2019 novel coronavirus infection Additional Impression: Atypical chest pain Disposition: HOME, SELF-CARE Condition: STABLE Referrals: UNKNOWN PCP NAME (PCP) Patient Instructions: Chest Pain (Nonspecific), [id number], Incentive Spirometer, Metered Dose Inhaler with Spacer Additional Instructions: Definicin Se le realiz la prueba de deteccin del COVID-19 o se le diagnostic dicha enfermedad. Es angie infeccin ocasionada por un nuevo tipo de coronavirus. En la mayora de los casos, el COVID-19 provoca sntomas similares a los del resfriado. En algunas personas, puede ocasionar sntomas ms graves, franky problemas respiratorios. No existe un tratamiento para el virus COVID-19. El cuerpo elimina la infeccin con el tiempo. El cuidado personal ayuda a aliviar el malestar. Pasos que debe seguir 1. Cuidados personales Descanse cuando sea necesario. Los hbitos saludables pueden ayudarlo a sentirse mejor. Algunas medidas para lograr cambios incluyen lo siguiente: - Elija alimentos saludables, franky frutas y verduras. Elvia abundante cantidad de agua sandy todo el da. - Duerma blanca por la noche. - Si fuma, intente no hacerlo. Thomas ayudar a mejorar la respiracin. - Evite el alcohol. 2. Mantenga sanos a los dems El virus puede contagiarse a otras personas. Cada vez que estornuda o tose, se liberan gotitas. Las gotitas pueden entrar en la boca, la nariz o los ojos de las personas que se encuentran cerca de usted y ocasionar la infeccin. Para reducir las probabilidades de contagiar el virus COVID-19 a otros, tenga en cuenta lo siguiente: - Qudese en casa el tiempo que el mdico se lo indique. Es posible que deba quedarse en casa hasta que la enfermedad desaparezca. Salga nicamente para recibir atencin mdica o en russell de urgencia. - Evite las reas pblicas, los eventos o el transporte pblico. No reanude las actividades laborales o escolares hasta que el mdico lo autorice. - Llame previamente si necesita asistir a un centro mdico. Avise que es posible que haya contrado COVID-19. Thomas ayudar a que le indiquen adonde debe dirigirse. Waldemar pueden pedirle que use angie mscara facial cuando vaya al consultorio. Si llama a los servicios de asistencia mdica de urgencias, avseles que es posible que haya contrado COVID-19. Mientras est en casa: - Evite el contacto directo con otras personas. Mantngase a angie distancia aproximada de 2 metros. Si es posible, pasen la mayor parte del tiempo en panchal separadas. - Use angie mscara facial si estar en contacto directo con otras personas, por ejemplo, si compartir angie habitacin o un vehculo. - Pida a alguien que limpie las superficies comunes de la casa. Limpie picaportes, mesadas y lavamanos con limpiadores domsticos todos los toro. - Al toser o estornudar, cbrase con un pauelo de papel. Despus de usarlo, deschelo de inmediato. Si no tiene un pauelo de papel, tosa o estornude en el pliegue del codo. - Lvese las rosas con frecuencia. Lvese las rosas despus de estornudar o toser. Lvese con agua y jabn sandy, al menos, 20 segundos. Si no dispone de agua y jabn, use un limpiador de rosas a base de alcohol. - No cocine para otros. Evite compartir objetos personales, franky tenedores, cucharas o cepillos de dientes. - Mientras est enfermo, evite el contacto directo con las mascotas. No hay indicios de si el virus se transmite a las mascotas. Esta es angie medida de seguridad que debe tenerse en cuenta hasta que se sepa ms acerca de stefani virus. El aislamiento puede ser frustrante. La interaccin social puede ayudar. Mantngase en contacto con amigos y familiares por telfono u otros medios tecnolgicos. Puede interactuar con otras personas en el hogar, juan mantenga angie distancia ann de aproximadamente 2 metros. Seguimiento Las pruebas para confirmar la presencia del COVID-19 pueden demorar algunos toro. Es posible que deba seguir los pasos mencionados anteriormente hasta que estn los resultados de las pruebas. Lo llamarn del consultorio mdico para saber si jett habido algn cambio en holder austin. Tambin le avisarn cuando pueda volver a estar cerca de otras personas. Problemas a los que debe estar atento Comunquese con el mdico si no se recupera segn lo previsto o si tiene problemas franky los siguientes: - Dificultad para respirar - Dolor de pecho - Empeoramiento de los sntomas Si lupe que tiene angie urgencia, llame a los servicios de asistencia mdica de urgencias de inmediato. As taken from [facility] Benzonatate (TESSALON PERLE) 100 Mg Capsule 100 MG PO TID PRN for COUGH, #20 CAP Prov: SCOUT BRANNON DO 10/12/19 Albuterol Sulfate (PROAIR HFA INHALER) 8.5 Gm Hfa.aer.ad 2 PUFF IH PRN Q4-6HRS PRN for SHORTNESS OF BREATH, #1 INHALER 0 Refills Prov: SCOUT BRANNON DO 10/12/19 Justicifation of Admission Dx: Justifications for Admission: Justification of Admission Dx: N/A SCOUT BRANNON DO Oct 12, 2019 12:07
[2019-10-12 12:29] LABS: BASO % 0 % (0-3); EOS % 0 % (0-3); HEMATOCRIT 40.7 % (36.0-47.0); HEMOGLOBIN 13.9 g/dL (12.0-15.5); LYMPH # 0.9 x10^3/uL (1.0-4.8); LYMPH % 17 % (24-48); MEAN CORPUSCULAR HEMOGLOBIN 31 pg (25-35); MEAN CORPUSCULAR HGB CONC 34 g/dL (31-37); MEAN CORPUSCULAR VOLUME 91 fL (79-100); MONO # 0.5 x10^3/uL (0.0-1.1); MONO % 11 % (0-9); NEUT # 3.7 x10^3/uL (1.8-7.7); NEUT % 72 % (31-73); PLATELET COUNT 166 x10^3/uL (140-400); RED BLOOD COUNT 4.49 x10^6/uL (3.50-5.40); RED CELL DISTRIBUTION WIDTH 13.2 % (11.5-14.5); WHITE BLOOD COUNT 5.2 x10^3/uL (4.0-11.0)
[2019-10-12 13:56] LABS: PROTHROMBIN TIME PATIENT 17.3 SEC (11.7-14.0)
[2019-10-12 14:03] LABS: D-DIMER 0.47 ug/mlFEU (0.00-0.50)
[2019-10-12 14:48] LABS: ALBUMIN 2.8 g/dL (3.4-5.0); ALBUMIN/GLOBULIN RATIO 0.8 (1.0-1.7); CALCIUM 7.7 mg/dL (8.5-10.1); CREATINE KINASE 44 U/L (26-192); CREATININE 0.6 mg/dL (0.6-1.0); GFR 100.6; MAGNESIUM 2.1 mg/dL (1.8-2.4); POTASSIUM 3.6 mmol/L (3.5-5.1); TOTAL BILIRUBIN 0.2 mg/dL (0.2-1.0); TOTAL PROTEIN 6.4 g/dL (6.4-8.2)
[2019-10-12 14:54] VITALS: BP 110/69
[2019-10-12 14:57] LABS: BILIRUBIN,URINE NEGATIVE (NEG); CLARITY,URINE CLEAR; COLOR,URINE YELLOW; NITRITE,URINE NEGATIVE (NEG); PROTEIN,URINE NEGATIVE (NEG-TRACE); UROBILINOGEN,URINE 0.2 mg/dL (0.2 mg/dL)
[2019-10-12 15:01] LABS: BACTERIA,URINE 0 /HPF (0-FEW); RBC,URINE 0 /HPF (0-2); WBC,URINE OCC /HPF (0-4)
[2019-10-12 15:02] LABS: SQUAMOUS EPITHELIAL CELL,UR OCC /LPF
[2019-10-12] MEDS ORDERED: BENZ100C PO (15:17)
[2019-10-12] MEDS ORDERED: ALBU2.5V8 IH (15:17)
--- NOTE | 2019-10-13 07:55 | EKG ---
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
== END 2019-10-12 15:23 | disposition home or self-care (01) ==
LOC: ER 11:16
DX: U07.1 COVID-19 (principal); R07.89 Other chest pain; Z88.1 Allergy status to other antibiotic agents
CPT/HCPCS: 36415; 71045; 80053; 81001; 82553; 82728; 83605; 83615; 83690; 83735; 83880; 84484; 85025; 85379; 85610; 85730; 87086; 93005; 99285; C9803; J7030; U0003